=== PATIENT | female | born 1975 | race American Indian/Alaskan Native ===

== ENCOUNTER 2019-07-30 10:18 | Outpatient (CLI) | payer MEDICAID ==
--- NOTE | 2019-07-30 12:15 | Mammography Report ---
BILATERAL DIGITAL SCREENING MAMMOGRAM WITH CAD INDICATION: Routine screening mammography. TECHNIQUE: Digital bilateral 2D mammography was obtained in the craniocaudal and mediolateral obliq ue projections. This examination was interpreted with the benefit of Computer-Aided Detection analysi s. COMPARISON: 11/21/2015. FINDINGS: Breast Density: The breasts are heterogeneously dense, which may obscure small masses. No suspicious mass, microcalcifications, or architectural distortion. IMPRESSION: No evidence of breast malignancy. Recommend routine screening mammogram in one year. BI-RADS Category 1: Negative. No mammographic evidence of malignancy. Recommend routine screening m ammography in one year. A "normal" or negative report should not discourage follow up or biopsy of a clinically significant f inding. A written summary of these findings will be mailed to the patient. The patient will be entered into a mammography reporting system which will generate a reminder letter for the patient's next appointmen t at the appropriate interval. The [employer] recommends yearly mammograms starting at age 40 and continuing as l siobhan as a woman is in good health. Breast MRI is recommended for women with an approximate 20-25% or greater lifetime risk of breast cancer, including women with a strong family history of breast or ova snehal cancer or who have been treated for Hodgkin's disease. Signer Name: Jeremy Marquez MD Signed: 07/30/2019 12:11 PM Workstation Name: [id number]
== END 2019-07-30 10:19 | disposition home or self-care (01) ==
LOC: SPVWC 10:18
PROVIDERS: ATTEND Internal Medicine
DX: Z12.31 Encounter for screening mammogram for malignant neoplasm of breast (principal)
CPT/HCPCS: 77067

== ENCOUNTER 2020-10-23 13:13 | Outpatient (CLI) | payer MEDICAID ==
--- NOTE | 2020-10-23 16:11 | Mammography Report ---
DIGITAL SCREENING MAMMOGRAM WITH CAD, 10/23/2020 INDICATION: Routine screening mammography. TECHNIQUE: Digital bilateral 2D mammography was obtained in the craniocaudal and mediolateral obliq ue projections. This examination was interpreted with the benefit of Computer-Aided Detection analysi s. COMPARISON: 07/30/2019. FINDINGS: Breast Density: There are scattered areas of fibroglandular density. There is no evidence of dominant mass, suspicious calcifications or architectural distortion in eithe r breast. IMPRESSION: Follow up recommendation: Routine yearly BI-RADS Category 1: Negative. A "normal" or negative report should not discourage follow up or biopsy of a clinically significant f inding. A written summary of these findings will be mailed to the patient. The patient will be entered into a mammography reporting system which will generate a reminder letter for the patient's next appointmen t at the appropriate interval. The [employer] recommends yearly mammograms starting at age 40 and continuing as l siobhan as a woman is in good health. Breast MRI is recommended for women with an approximate 20-25% or greater lifetime risk of breast cancer, including women with a strong family history of breast or ova snehal cancer or who have been treated for Hodgkin's disease. Signer Name: Kenneth Velazquez MD Signed: 10/23/2020 4:07 PM Workstation Name: [id number]
== END 2020-10-23 13:14 | disposition home or self-care (01) ==
LOC: SPVWC 13:13
PROVIDERS: ATTEND Internal Medicine
DX: Z12.31 Encounter for screening mammogram for malignant neoplasm of breast (principal); N64.89 Other specified disorders of breast
CPT/HCPCS: 77067